=== PATIENT | female | born 2000 | race Two or more races ===

== ENCOUNTER → 2021-02-22 | Emergency (ER) | payer MEDICAID ==
[~2021-02-22] VITALS: Ht 152.4 cm; Wt 49.9 kg
[2021-02-22 16:50] VITALS: BP 130/79
== END | disposition left against medical advice (07) ==
LOC: ER 16:47
DX: R10.13 Epigastric pain (principal); Z53.21 Procedure and treatment not carried out due to patient leaving prior to being seen by health care provider